=== PATIENT | male | born 1950 | race Two or more races ===

== ENCOUNTER 2024-12-12 16:32 | Outpatient (CLI) | payer BC | END 2024-12-12 16:38 | disposition home or self-care (01) | LOC: RAD 16:32 | DX: J43.9 Emphysema, unspecified (principal) ==

== ENCOUNTER 2025-01-19 09:31 | Outpatient (CLI) | payer BC | END 2025-01-19 09:32 | disposition home or self-care (01) | LOC: SONOGRAMA 09:31 | DX: N20.0 Calculus of kidney (principal) ==

== ENCOUNTER 2025-01-21 09:56 | Outpatient (CLI) | payer BC | END 2025-01-21 09:57 | disposition home or self-care (01) | LOC: SONOGRAMA 09:56 | DX: N20.0 Calculus of kidney (principal) ==